=== PATIENT | male | born 1940 | race Caucasian/White ===

== ENCOUNTER 2018-11-14 12:15 | Outpatient (CLI) | payer MEDICARE, OTHER ==
--- NOTE | 2018-11-14 13:12 | XRAY Report ---
Reason: ARTHROPATHIC PSORIASIS Procedure Date: 11/14/2018 Accession Number: [id number] / [id number] Procedure: XR - Hand 2 View BILAT CPT Code: FULL RESULT: EXAMS: 1. Right Hand Radiography 2. Left Hand Radiography EXAM DATE: 11/14/2018 12:37 PM. CLINICAL HISTORY: ARTHROPATHIC PSORIASIS. COMPARISON: None. TECHNIQUE: 3 views each hand. FINDINGS: Right: Bones: No fractures or bone lesions. Joints: There is severe narrowing of the radial ulnar carpal articulations with subchondral sclerosis. There is severe narrowing of all of the carpal bone articulations. There is moderate narrowing of the first carpometacarpal joint. There is moderate narrowing of the second through fifth carpometacarpal joints. There is severe narrowing of the first metacarpal phalangeal joint and interphalangeal joint. There is mild narrowing of the third through fifth metacarpophalangeal joints area there are erosions of the first proximal phalanx, and distal third and fourth metacarpals. There is moderate narrowing of the second through fifth proximal inner phalangeal joints and distal interphalangeal joints with several erosions. Soft Tissues: There is mild soft tissue swelling of the fingers. Left: Bones: No fractures or bone lesions. Joints: There is severe narrowing of the radiocarpal articulations with subchondral sclerosis. There is moderate narrowing of all of the carpal bone articulations. There is mild narrowing of the first carpometacarpal joint. There are mild degenerative changes of the second through fifth carpometacarpal joints. There is moderate narrowing of the first and fifth metacarpophalangeal joints, with erosions of the fifth MCP joint articulations. There is mild narrowing of the second through fourth metacarpophalangeal joints. There is moderate narrowing of the second through fifth proximal interphalangeal joints and distal interphalangeal joints. Soft Tissues: There is mild soft tissue swelling of the fingers. IMPRESSION: Moderate to severe degenerative and erosive findings are consistent with the given history of psoriatic arthritis. [facility]
== END 2018-11-14 12:16 | disposition home or self-care (01) ==
LOC: DI 12:15
PROVIDERS: ATTEND Internal Medicine
DX: L40.50 Arthropathic psoriasis, unspecified (principal); M19.042 Primary osteoarthritis, left hand; M19.041 Primary osteoarthritis, right hand

== ENCOUNTER 2020-08-29 10:10 | Outpatient (CLI) | payer MEDICARE, OTHER ==
--- NOTE | 2020-08-29 16:14 | XRAY Report ---
PROCEDURE: Thoracic Spine 2 View INDICATIONS: LOW BACK PAIN TECHNIQUE: 3 views of the thoracic spine were acquired. COMPARISON: Cervical fixation plate. FINDINGS: Bones: No fractures or dislocations. No suspicious bony lesions. 12 pairs of ribs are noted, and a ppear intact where visualized. Multilevel moderate to severe disc desiccation with bridging anterior osteophytes are present most prominent within the mid and lower thoracic spine. Soft tissues: No paravertebral stripe thickening. IMPRESSION: Multilevel degenerative changes as above. Reviewed by: Estefany Harris MD on 08/29/2020 4:13 PM PST Approved by: Estefany Harris MD on 08/29/2020 4:13 PM PST Station ID: [id number]
--- NOTE | 2020-08-29 16:15 | XRAY Report ---
PROCEDURE: Lumbar Spine 2 View INDICATIONS: LOW BACK PAIN TECHNIQUE: 2 views of the lumbar spine were acquired. COMPARISON: None. FINDINGS: Bones: 5 [id number] vertebrae are present. There is minimal rightward curvature. There is over all straightening of normal lumbar curvature. Multilevel severe degenerative disc space narrowing is present. Severe foraminal narrowing is present at L5-S1, L2-L3. Mild height loss is present at L1 and L2 of indeterminate age. No suspicious bony lesions. Soft tissues: Overlying bowel gas pattern is normal. No suspicious soft tissue calcifications. IMPRESSION: 1. Severe multilevel degenerative changes. 2. Height loss at L1 and L2 of indeterminate age. Reviewed by: Estefany Harris MD on 08/29/2020 4:14 PM PST Approved by: Estefany Harris MD on 08/29/2020 4:14 PM PST Station ID: [id number]
== END 2020-08-29 10:11 | disposition home or self-care (01) ==
LOC: DI 10:10
PROVIDERS: ATTEND Internal Medicine
DX: M47.814 Spondylosis without myelopathy or radiculopathy, thoracic region (principal); M47.816 Spondylosis without myelopathy or radiculopathy, lumbar region

== ENCOUNTER 2022-06-29 13:09 | Outpatient (CLI) | payer MEDICARE, OTHER ==
[2022-06-29 13:47] LABS: CALCIUM 9.5 mg/dL (8.5-10.3); POTASSIUM 3.8 mmol/L (3.5-5.0)
== END 2022-06-29 13:10 | disposition home or self-care (01) ==
LOC: LAB 13:09
PROVIDERS: ATTEND Urology
DX: Z01.812 Encounter for preprocedural laboratory examination (principal); Z13.6 Encounter for screening for cardiovascular disorders
CPT/HCPCS: 36415; 80048; 93005

== ENCOUNTER 2023-07-03 09:12 | Outpatient (CLI) | payer MEDICARE, OTHER | END 2023-07-03 09:13 | disposition home or self-care (01) | LOC: DI 09:12 | PROVIDERS: ATTEND Physician Assistant | DX: I08.0 Rheumatic disorders of both mitral and aortic valves (principal) | CPT/HCPCS: 93306 ==

== ENCOUNTER 2023-10-13 14:03 | Emergency (ER) | payer MEDICARE, OTHER ==
[2023-10-13] MEDS ORDERED: TETANUS/DIPHTHERIA/PERTUSSIS 0.5 ML SYRINGE IM ONE (15:12)
--- NOTE | 2023-10-13 15:14 | ED Physician Documentation ---
History of Present Illness - Stated complaint Stated Complaint: GLF/FOREHEAD INJ - Chief complaint Chief Complaint: Trauma Hd/Nk - History obtained from History obtained from: Patient, Family - Additonal information Additional information: 83-year-old gentleman was nodding off while reading the paper and fell off his barstool hitting his head initially on the counter or cabinet, he is not sure, then the ground. He has a laceration on the left side of face and cannot see out of the left eye due to swelling. Also has a skin tear on the dorsal right wrist and some mild left chest wall pain. Declines pain medication on initial evaluation. Last tetanus is unknown. PD PAST MEDICAL HISTORY - Past Medical History Past Medical History: Yes Cardiovascular: Hypertension Musculoskeletal: Osteoarthritis - Past Surgical History Past Surgical History: Yes Ortho: Knee replacement, Spine surgery - Allergies Allergies/Adverse Reactions: Allergies Allergy/AdvReac Type Severity Reaction Status Date / Time codeine Allergy Unknown Verified 10/13/23 14:32 - Social History Does the pt smoke?: No Smoking Status: Never smoker PD ED PE NORMAL - Vitals Vital signs reviewed: Yes - General General: Alert and oriented X 3, No acute distress - HEENT HEENT: PERRL, EOMI, Other (He has significant periorbital edema and ecchymosis on the left with a smaller laceration in the left lateral periorbital area. He is able to open his eye and his globe appears normal and soft.) - Neck Neck: Supple, no meningeal sign, No bony TTP, No bruit - Cardiac Cardiac: Other (Mild tenderness left chest wall) - Respiratory Respiratory: No respiratory distress, Clear bilaterally - Abdomen Abdomen: Non tender - Extremities Extremities: Other (He has a severely arthritic right wrist but it is not tender and he has limited range of motion but he says that is no different than normal. There is a skin tear dorsally there.) - Neuro Neuro: Alert and oriented X 3, Normal speech Eye Opening: Spontaneous Motor: Obeys Commands Verbal: Oriented GCS Score: 15 - Psych Psych: Normal mood, Normal affect Results - Vitals Vitals: Vital Signs - 24 hr 10/13/23 10/13/23 14:29 16:44 Temperature 36.5 C Heart Rate 84 78 Respiratory 18 16 Rate Blood Pressure 172/81 H 182/94 H O2 Saturation 95 98 - Rads (name of study) CT of the face, cervical spine, and head demonstrates atrophy and chronic microvascular ischemic changes and the scalp hematoma with, but no traumatic Relevant Findings:: Final report received, EMP independent interpretation of test Ct Chest- RLL Mass Relevant Findings:: Final report received, EMP independent interpretation of test Procedures - Laceration (location) Left face Length in cm: 2 Wound type: Linear, Into subcut fat Wound preparation: Irrigated copiously NS Skin layer closure: Dermabond Other: Patient tolerated well, No complications, Neurovascular intact, Tetanus booster given Right wrist Length in cm: 5 Wound type: Irregular, Flap, Superficial Wound preparation: Irrigated copiously NS Skin layer closure: Dermabond Other: Patient tolerated well, No complications, Tetanus booster given PD Medical Decision Making - ED course ED course: The wrist just seems like a skin tear. It is not tender and no more limited range of motion than normal, so do not think that needs imaging. He is 83 so would image his brain and face and the chest. Will update tetanus. Declines pain medication on initial evaluation. Patient's had to leave early because she cannot drive after dark. As such patient and are discharged prior to the CAT scans being formally read although I did not see any trauma on the scans per se. Subsequent to discharge the CT of the chest did show a concerning finding in the right lower lobe that could be consistent with a malignant process. I was able to talk to the patient at home and he verbalizes understanding and I will also write his PCP a note to that effect that he will need further workup, either biopsy or PET scan. Departure - Departure Disposition: 01 Home, Self Care Clinical Impression: Right lower lobe lung mass Injury of head and neck Qualifiers: Encounter type: initial encounter Qualified Code(s): S09.90XA - Unspecified injury of head, initial encounter Facial laceration Qualifiers: Encounter type: initial encounter Qualified Code(s): S01.81XA - Laceration without foreign body of other part of head, initial encounter Facial contusion Qualifiers: Encounter type: initial encounter Qualified Code(s): S00.83XA - Contusion of other part of head, initial encounter Chest wall contusion Qualifiers: Encounter type: initial encounter Laterality: left Qualified Code(s): S20.212A - Contusion of left front wall of thorax, initial encounter Skin tear of forearm without complication Qualifiers: Encounter type: initial encounter Laterality: right Qualified Code(s): S51.811A - Laceration without foreign body of right forearm, initial encounter Condition: Good Record reviewed to determine appropriate education?: Yes Instructions: ED Head Injury Closed, ED Laceration Facial Skin Glue, ED Laceration Ext Skin Glue Comments: The CAT scans are not formally read yet but I have looked through them and do not see any serious findings. I will call you with any substantial changes at [phone] a little later in the evening, but I know you need to get home before gets to dark. You can take Tylenol as needed per package instructions for pain. Call your doctor to arrange a follow-up appointment, make the next available appointment. In the interim, return anytime if worse or if new symptoms develop. Forms: PCP List Discharge Date/Time: 10/13/23 16:47
--- NOTE | 2023-10-13 16:45 | CT Report ---
PROCEDURE: Cervical Spine WO INDICATIONS: Neck trauma, midline tenderness TECHNIQUE: Noncontrast 3 mm thick sections acquired from the skull base to the T4 level. Sagittal and coronal r eformats were then constructed. For radiation dose reduction, the following was used: automated exp osure control, adjustment of mA and/or kV according to patient size. COMPARISON: CT head, maxillofacial 10/13/2023 FINDINGS: Image quality: Excellent. Bones: No fractures or dislocations. Visualized superior ribs are intact. Anterior fusion is prese nt C4-C6. Hardware is intact without evidence of hardware fracture or periprosthetic lucency to sugge st loosening. Prominent anterior osteophyte is present at C3. Soft tissues: Prevertebral soft tissues are normal in thickness. Low-attenuation thyroid foci are p resent most prominent on the right. No paravertebral hematomas. No apical pneumothoraces. IMPRESSION: Degenerative changes of visualized fracture. Reviewed by: Estefany Harris MD on 10/13/2023 4:44 PM PST Approved by: Estefany Harris MD on 10/13/2023 4:44 PM PST Station ID: [id number]
--- NOTE | 2023-10-13 16:46 | CT Report ---
PROCEDURE: Head WO INDICATIONS: Head trauma, mod-severe TECHNIQUE: Noncontrast 4.5 mm thick angled axial sections acquired from the foramen magnum to the vertex. For r adiation dose reduction, the following was used: automated exposure control, adjustment of mA and/or kV according to patient size. COMPARISON: CT C-spine 10/13/2023. FINDINGS: Image quality: Excellent. The ventricular system and cortical sulci demonstrate atrophy, consistent for patient's stated age. There are areas of hypodensity in the periventricular and subcortical white matter. There is no acut e intra or extra-axial fluid collection. No acute hemorrhage, mass lesion or midline shift. Brainst em is unremarkable. Globes are symmetrical. Sinuses are aerated. Osseous structures are intact. Prominent left frontal sc alp hematoma. IMPRESSION: 1. No acute intracranial process. 2. Moderate atrophy and chronic microvascular ischemic changes. 3. Prominent left frontal scalp hematoma. Reviewed by: Estefany Harris MD on 10/13/2023 4:45 PM PST Approved by: Estefany Harris MD on 10/13/2023 4:45 PM PST Station ID: [id number]
--- NOTE | 2023-10-13 16:47 | CT Report ---
PROCEDURE: Maxillofacial WO INDICATIONS: Facial trauma TECHNIQUE: Noncontrast 1.5 mm thick axial images acquired from the mandible through the frontal sinuses, with co tatiana and sagittal reformatting. For radiation dose reduction, the following was used: automated ex posure control, adjustment of mA and/or kV according to patient size. COMPARISON: None. FINDINGS: Image quality: Excellent. Bones and teeth: Orbital olvera are intact. Sinus olvera show no fracture or deformity. Nasal bones and septum are intact. Visualized portions of the mandible demonstrate no fractures or subluxation. Zygomatic arches are intact. Pterygoid plates are intact. Visualized portions of the skull base an d auditory canals are intact. Sinuses: Paranasal sinuses are aerated, without fluid levels, mucosal thickening, or mucoceles. Mas toid air cells are aerated. Soft tissues: Prominent left frontal scalp hematoma. No enlarged lymph nodes. No soft tissue lacerat ions or debris. Vascular: Visualized vascular structures appear normal in the absence of contrast. Bony vascular fo ramina and canals are intact. IMPRESSION: Prominent left frontal scalp hematoma. No underlying osseous fracture. Reviewed by: Estefany Harris MD on 10/13/2023 4:46 PM PST Approved by: Estefany Harris MD on 10/13/2023 4:46 PM PST Station ID: [id number]
[2023-10-13 16:55] VITALS: BP 182/94; O2SAT 98
--- NOTE | 2023-10-13 16:56 | CT Report ---
PROCEDURE: Chest WO INDICATIONS: L chest inj TECHNIQUE: A CT scan of the chest was performed. Intravenous contrast media was not administered. Images were re corded and evaluated at appropriate window settings. Reformats: axial MIP of the chest, coronal and s agittal. For radiation dose reduction, the following was used: automated exposure control, adjustment of mA and/or kV according to patient size. COMPARISON: None. FINDINGS: Image quality: Excellent. Lungs and pleura: No consolidation. No pleural effusions. No pneumothorax. 2 mm lateral right upper lobe nodule series 4 image 26 cavitary appearing irregularly marginated mass in the right lower lobe measuring 3.6 x 2.6 cm. Areas of calcification are present. No priors are available for comparison. Mediastinum: Heart size is enlarged. No pericardial effusion. No large vessel abnormality. No mediast inal adenopathy by size criteria. Chest wall and lower neck: Low-attenuation foci are present within the thyroid gland bilaterally. No priors. No axillary or supraclavicular adenopathy by size. Bones: No aggressive osseous abnormality. Upper Abdomen: Bilateral simple renal cysts are present. Multiple stones are present within the gallb ladder without visualized wall thickening. Right posterior chest wall lipoma. IMPRESSION: No visualized osseous traumatic injury. Cavitary appearing irregularly marginated mass in the right lower lobe measuring 3.6 x 2.6 cm. No sebastian ors are available for comparison. Etiology is indeterminate on the basis of this examination. However , further evaluation with PET scan or potentially biopsy is recommended to exclude malignancy. 2 mm right upper lobe nodule, nonspecific and no priors available for comparison. Given above finding s, close interval follow-up of this region on subsequent imaging is recommended. Cholelithiasis. Reviewed by: Estefany Harris MD on 10/13/2023 4:54 PM PST Approved by: Estefany Harris MD on 10/13/2023 4:54 PM PST Station ID: [id number]
== END 2023-10-13 16:47 | disposition home or self-care (01) ==
LOC: ED 14:03
DX: S09.90XA Unspecified injury of head, initial encounter (principal); S19.9XXA Unspecified injury of neck, initial encounter; S01.81XA Laceration without foreign body of other part of head, initial encounter; S51.811A Laceration without foreign body of right forearm, initial encounter; S20.212A Contusion of left front wall of thorax, initial encounter; W08.XXXA Fall from other furniture, initial encounter; Y93.89 Activity, other specified; R91.8 Other nonspecific abnormal finding of lung field; I10 Essential (primary) hypertension; Z23 Encounter for immunization
CPT/HCPCS: 12002; 12011; 99284

== ENCOUNTER 2023-10-29 10:31 | Outpatient (CLI) | payer MEDICARE, OTHER | END 2023-10-29 10:32 | disposition home or self-care (01) | LOC: RT 10:31 | PROVIDERS: ATTEND Nurse Practitioner Family | DX: I49.9 Cardiac arrhythmia, unspecified (principal); R42 Dizziness and giddiness | CPT/HCPCS: 93005 ==